=== PATIENT | female | born 1945 | race Caucasian/White ===

== ENCOUNTER 2024-10-08 17:11 | Emergency (ER) | payer OTHER, SELFPAY ==
[2024-10-08 17:17] VITALS: BP 137/72; BMI 29.1
[2024-10-08 17:36] LABS: Glucose - Point of Care 102 mg/dl (70-99)
--- NOTE | 2024-10-08 17:39 | EDRN ---
Dr. Bob in room w/ pt at this time.
--- NOTE | 2024-10-08 17:46 | ED.GENMED ---
History of Present Illness
General
Chief Complaint: Visual Problem
Source: patient
Time Seen by Provider: 10/08/24 17:32
History of Present Illness
History of Present Illness:
This patient is a 79-year-old female who comes emergency department complaints of blurry vision. She first noticed it this afternoon while she was reading the captions on a show on her iPad. Since then, the symptoms have continued. However, the
symptoms are much improved. Patient wears 'nonlinear trifocals', and states that she is wearing her glasses but feels like she needs to wear her glasses because it feels like 'there is Vaseline on my eyeballs'. She denies double vision, change in
speech, change in balance, aphasia, nausea, vomiting, fever, clumsiness, weakness, numbness, tingling. She did have a very mild headache described as bifrontal that was gradual in onset earlier today that improved with Motrin. Patient has never
had the symptoms before. Of note, she states that she overindulged on Thanksgiving and spent much of the day yesterday in bed with repeated episodes of diarrhea. This is resolved and she was able to eat and drink as usual today.
Past History
Past History
ED Past Medical History: None
ED Past Surgical History: Gynecological, Orthopedic and Other (cataracts)
Social History
Tobacco: Non-smoker
Alcohol: None
Drug: None
Living: assisted living
Phy Exam
Physical Exam
Physical Exam:
GENERAL: Alert , in no apparent distress
EYE: pupils equal and reactive, EOMI, no nystagmus, no photophobia
NECK: Supple, no significant adenopathy.
ENT: o/p clr, mmm.
CARDIAC: Regular rate and rhythm .
LUNGS: Clear breath sounds bilaterally, no acute respiratory distress, no wheezes/rales/rhonchi
ABDOMEN: Soft, without focal tenderness, no r/g, no cvat
NEUROLOGICAL: Alert and oriented, no focal neuro deficits, [id number] normal, motor 5 out of 5, sensory intact, cranial nerves II through XII intact, visual ross intact
SKIN: Warm and dry, skin intact.
MUSCULOSKELETAL: No edema, well perfused.
PSYCH: Normal and appropriate interaction.
Course
Orders/Labs/Results
Orders:
Orders
10/08/24 17:29
Electrocardiogram (*1) Urgent
Reason for Study: Chest Pain
Cardiac Monitoring- Treatment ONCE
EKG- Treatment ONCE
IV Insert/Care/Rem.- Treatment PRN
Accucheck Once [Bedside Glucose Monitoring-ONCE] As Directed
10/08/24 17:38
Complete Blood Count/With Diff Urgent
Comprehensive Metabolic Panel Urgent
Prothrombin Time Urgent
Troponin I Urgent
10/08/24 17:46
CT Head W/o Iv Contrast Urgent
Comment:
Reason For Exam: blurry vision
Visual Acuity- Treatment ONCE
Abnormal Lab Results
10/08/24 10/08/24
17:34 17:38
WBC 2.7 L 10^3/uL
(4.8-10.8)
RBC 4.19 L 10^6/uL
(4.20-5.40)
Plt Count 108 L 10^3/uL
(130-400)
MPV 11.0 H fL
(7.4-10.4)
Absolute Lymphs (auto) 0.9 L 10^3/uL
(1.2-3.4)
Immature Gran % 0.7 H %
(0-0.5)
Monocytes % 14.0 H %
(1.7-9.3)
Potassium 3.2 L mmol/L
(3.5-5.1)
Creatinine 0.5 L mg/dL
(0.6-1.0)
Glucose 105 H mg/dl
(70-99)
Total Protein 5.6 L g/dl
(6.3-8.2)
POC Glucose 102 H mg/dl
(70-99)
10/08/24 17:38
10/08/24 17:38
Vital Signs
Initial and Last Documented VS:
Initial Vital Signs
Temp Pulse Resp BP Pulse Ox
97.8 F 65 14 137/72 95
10/08/24 17:17 10/08/24 17:17 10/08/24 17:17 10/08/24 17:17 10/08/24 17:17
Last Documented Vital Signs
Temp Pulse Resp BP Pulse Ox
97.8 F 63 21 138/77 95
10/08/24 17:17 10/08/24 18:45 10/08/24 18:45 10/08/24 18:02 10/08/24 18:45
Update Note
Update Note:
Patient presents to the Emergency Department with blurry vision
Number and Complexity of Problems Addressed at the Encounter
� Chronic conditions affecting care:
� Acute Exacerbation and/or Progression of Chronic Illness:
� Differential Diagnosis includes: But not limited to conjunctivitis, cva/tia, glaucoma, etc etc
Amount and/or Complexity of Data to be Reviewed and Analyzed
� I performed an independent evaluation of and my interpretation is:
EKG: Read by me, normal sinus rhythm, normal rate, normal axis, nonspecific T wave flattening noted
CT: Read by radiology NAD head CT
Xrays:
Laboratory Studies: Leukopenia noted, mild thrombocytopenia, mild hypokalemia
Other:
� Review of other/old records reveals:
� Clinical information was obtained by an independent historian:
� Prescriptions/Medications Considered but not given:
� Further testing considered but not performed:
Risk of Complications and/or Morbidity or Mortality of Patient Management
� Social determinants of health affecting care:
� Discussion with other providers (PCP, Hospitalists, Consultants, etc):
� Escalation of care including admission/observation vs risk of discharge considered: 7:24 PM patient remains comfortable, watching TV in no distress. I did discuss case with ophthalmology, Dr. Bella, who suggest that patient
likely suffering from dry eyes and suggest lubricating drops, especially given her description of 'like Vaseline' on her eyes. We both have extremely low suspicion for a TIA/CVA given normal neurological exam, no identified risk factors, normal
head CT, etc. etc. She does not have visual field cut or diplopia. When discussed with patient she states that in fact she typically does use lubricating drops but did not today and states that her living location has 'dry heat'. Discussed with
patient portance of follow-up and reasons return to the ER. She was also made aware of her leukopenia and thrombocytopenia which she confirms is chronic in nature.
ED Attending Note
-
Portions of this chart may have been created with voice recognition software.� Occasional wrong word or��sound alike� substitutions may have occurred due to the inherent limitations of voice recognition software.
Discharge Plan
Departure
Patient Disposition: Home (Routine Discharge)
Date of Disposition: 10/08/24
Time of Disposition: 19:26
Patient with high blood pressure during this ER visit?: Yes
Condition: Good
Discharge Problem:
Blurred vision
Instructions: BLOOD PRESSURE
Referrals:
Ada Estrella MD [Family Provider] -
Activity Restrictions/Additional Instructions:
WE SUSPECT THAT YOUR EYES ARE DRY, AND YOU SHOULD APPLY LUBRICATING DROPS DIRECTED. IF YOU DEVELOP WORSENING SYMPTOMS, DOUBLE VISION, A LOSS OF ALL/PART OF YOUR VISION, NUMBNESS, WEAKNESS, DIZZINESS, SEVERE HEADACHE, SLURRED SPEECH, OR OTHER
WORRISOME SIGNS, GO TO THE ER IMMEDIATELY! SEE YOUR EYE DOCTOR ON THURSDAY.
Interventions
Interventions:
*Risk Screen - Suicide Last Done: 10/08/24 17:17
*General Assessment Last Done: 10/08/24 17:17
*Neglect/Abuse Screening Last Done: 10/08/24 17:17
ED- Fall Risk Assessment Last Done: 10/08/24 17:17
*ED COVID-19 Vaccine History Last Done: 10/08/24 17:17
ED- Neurological Assessment Last Done: 10/08/24 17:52
ED-EENT Assessment Last Done: 10/08/24 18:05
ED Swallowing Screen Last Done: 10/08/24 18:09
Discharge Date and Time
Print Language: PUERTO RICAN
[2024-10-08 18:00] LABS: % Basophils 0.4 % (0-2); % Eosinophils 1.8 % (0-6); % Immature Granulocytes 0.7 % (0-0.5); % Lymphocytes 33.1 % (20.5-51.1); Absolute Eosinophils 0.1 10^3/uL (0-0.7); Absolute Lymphocytes 0.9 10^3/uL (1.2-3.4); Absolute Monocytes 0.4 10^3/uL (0.1-0.6); Absolute Neutrophils 1.4 10^3/uL (1.4-6.5); Hematocrit 38.8 % (37.0-47.0); Mean Corp Hgb Conc. 33.5 g/dL (33.0-37.0); Mean Corpuscular Volume 92.6 fL (81.0-99.0); Nucleated Red Blood Cells % 0 %; Platelet Count 108 10^3/uL (130-400); Red Blood Cell Count 4.19 10^6/uL (4.20-5.40); Red Cell Dist. Width 13.2 % (11.5-14.5); White Blood Cell Count 2.7 10^3/uL (4.8-10.8)
[2024-10-08 18:02] VITALS: BP 138/77
[2024-10-08 18:02] LABS: ALT (SGPT) 19 U/L (0-35); AST (SGOT) 24 U/L (14-36); Albumin 3.5 g/dl (3.5-5.0); Alkaline Phosphatase 53 U/L (38-126); Blood Urea Nitrogen 13 mg/dl (7-17); Calcium 9.2 mg/dl (8.4-10.2); Carbon Dioxide 24 mmol/L (22-30); Chloride 107 mmol/L (98-107); Estimated Creatinine Clearance 89 ml/min; Glucose 105 mg/dl (70-99); Potassium 3.2 mmol/L (3.5-5.1); Sodium 137 mmol/L (135-145); Total Bilirubin 0.5 mg/dl (0.2-1.3); Total Protein 5.6 g/dl (6.3-8.2); eGFR > 60.00
[2024-10-08 18:05] LABS: INR 1.01; PT 13.6 Sec (11.4-14.6)
[2024-10-08 18:14] LABS: Troponin I < 0.012 ng/ml
[2024-10-08 19:00] VITALS: BP 135/77
[2024-10-08] MEDS: KCL 40 MEQ PO (19:34)
== END 2024-10-08 20:51 | disposition home or self-care (01) ==
LOC: EMR 17:11
PROVIDERS: Emergency Medicine; EMERGENCY PHYSICIAN Emergency Medicine; FAMILY PHYSICIAN Internal Medicine Geriatric Medicine
DX: H53.8 Other visual disturbances (principal); R51.9 Headache, unspecified; R03.0 Elevated blood-pressure reading, without diagnosis of hypertension; D69.6 Thrombocytopenia, unspecified; D72.819 Decreased white blood cell count, unspecified; Z88.8 Allergy status to other drugs, medicaments and biological substances
CPT/HCPCS: 99284; 70450; 80053; 82962; 84484; 85025; 85610; 93005